=== PATIENT | female | born 1980 | race Caucasian/White ===

== ENCOUNTER 2016-05-10 19:24 | Inpatient (IN) | payer OTHER ==
[~2016-05-10] VITALS: Ht 170.2 cm; Wt 75.3 kg
[~2016-05-10 19:24] MED LIST: PRILOSEC20 M1 PO
[2016-05-10 20:10] VITALS: BP 168/103
--- NOTE | 2016-05-10 20:41 | NUR ---
PATIENT AMBULATED TO ER BED 03
--- NOTE | 2016-05-10 20:49 | NUR ---
Patient being evaluated by physician at bedside.
--- NOTE | 2016-05-10 20:52 | NUR ---
PATIENT PRESENTS TO ED WITH C/C OF ABDOMINAL PAIN RADIATING TO RIGHT SHOULDER AND BACK FOR 3 DAYS. DENIES N/V/D; SKIN IS PINK/WARM/DRY; AAOX4 WITH EVEN AND STEADY GAIT; LUNGS CLEAR BL; HR EVEN AND REGULAR; PT DENIES ANY FEVER, CP, SOB, OR COUGH AT THIS TIME; PATIENT STATES PAIN OF 8/10 AT THIS TIME; VSS; PATIENT POSITIONED FOR COMFORT; HOB ELEVATED; BEDRAILS UP X2; BED DOWN. ER MD MADE AWARE OF PT STATUS.
[2016-05-10] MEDS ORDERED: NACL 0.9% 1,000 ML IV SCH (20:53)
[2016-05-10] MEDS ORDERED: ONDANSETRON 4 MG/2 ML VIAL IVP ONE (20:55)
[2016-05-10] MEDS ORDERED: FAMOTIDINE 20 MG/2 ML VIAL IVP ONE (20:55)
--- NOTE | 2016-05-10 22:40 | NUR ---
PT ARRIVED ON UNIT IN STABLE CONDITION. NO SOB, NO SIGNS OF DISTRESS. VS STABLE ON ROOM AIR. PT IS AOX4, AMBULATORY WITH STEADY GAIT. PT STATES HER PAIN IS TOLERABLE AT THIS TIME. PT DENIES N/V/D. IV TO LT FA 2OG PATENT, ASYMPTOMATIC, INTACT, SALINE LOCKED. ORIENTED PT TO ROOM AND UNIT. SKIN INTACT. EDUCATED PT THAT PER MD ORDER SHE IS NOT TO EAT OR DRINK, PT VERBALIZED UNDERSTANDING. PLAN OF CARE DISCUSSED WITH PT, ALL QUESTIONS ANSWERED. SAFETY MEASURES IN PLACE. CALL LIGHT WITHIN REACH. WILL CONTINUE TO MONITOR.
--- NOTE | 2016-05-10 22:40 | NUR ---
Patient will be admitted to care of DR. DILL. Admited to MED-SURG. Will go to room 120A. Belongings list completed. Report to SAMIA WINN.
--- NOTE | 2016-05-10 23:06 | NUR ---
PT REQUESTED NICOTINE PATCH SINCE SHE CANNOT SMOKE DURING HOSPITAL STAY. PAGED MD PRICE TACK MAKER FOR MD DILL FOR ORDER. WAITING FOR CALL BACK.
--- NOTE | 2016-05-10 23:08 | NUR ---
SPOKE WITH MD PRICE. GAVE ORDER FOR NICOTINE PATCH, STATED IT IS OK TO START TONIGHT.
[2016-05-10 23:12] VITALS: BP 147/89
[2016-05-10] MEDS ORDERED: ceFAZolin 1,000 MG VIAL ONE (23:26)
[2016-05-10] MEDS: NACL 0.9% 1,000 ML IV SCH (23:40)
--- NOTE | 2016-05-10 23:40 | NUR ---
STARTED PT ON IVF AND IV ANTIBIOTIC PER MD ORDER, PT TOLERATING WELL.
[2016-05-10] MEDS ORDERED: INFLUENZA VIRUS VACCINE QUAD 0.5 ML SYR IMVAC PRN (23:45)
[2016-05-10] MEDS ORDERED: PNEUMOCOCCAL VACCINE 23 MCG/0.5 ML VIAL IMVAC PRN (23:45)
[2016-05-11] VITALS: BP 154/86
--- NOTE | 2016-05-11 00:23 | NUR ---
VS STABLE ON ROOM AIR. NO SOB, NO SIGNS OF DISTRESS. IV SITE ASYMPTOMATIC, INTACT, PATENT, IVF RUNNING. PT C/O PAIN, WILL MEDICATE PER MD ORDER. PLAN OF CARE DISCUSSED WITH PT. SAFETY MEASURES IN PLACE. CALL LIGHT WITHIN REACH. WILL CONTINUE TO MONITOR.
[2016-05-11] MEDS: MORPHINE SULFATE 2 MG/ML SYR IVP PRN ×2 (00:36→08:43)
--- NOTE | 2016-05-11 02:20 | NUR ---
PT ASLEEP IN BED. NO SOB, NO SIGNS OF DISTRESS. IV SITE ASYMPTOMATIC, INTACT, PATENT, IVF RUNNING. SAFETY MEASURES IN PLACE. CALL LIGHT WITHIN REACH. WILL CONTINUE TO MONITOR.
--- NOTE | 2016-05-11 04:12 | NUR ---
PT ASLEEP IN BED. NO SOB, NO SIGNS OF DISTRESS. IV SITE ASYMPTOMATIC, INTACT, PATENT, IVF RUNNING. SAFETY MEASURES IN PLACE CALL LIGHT WITHIN REACH. WILL CONTINUE TO MONITOR.
--- NOTE | 2016-05-11 07:02 | NUR ---
ENDORSED PT IN STABLE CONDITION TO SAMIA BOUCHER. ALL NEEDS HAVE BEEN MET AT THIS TIME.
--- NOTE | 2016-05-11 07:03 | NUR ---
RECEIVED REPORT FROM NIGHT NURSE TATUM RN. PATIENT APPEARED TO BE CALM, AWAKE AND RESTING WELL IN BED. AAOX4 WITH NO SOB OR SIGN OF DISTRESS NOTED. INITIAL ASSESSMENT DONE. SKIN INTACT. PATIENT STATED ABD PAIN IS TOLERABLE AT THIS TIME AND REQUEST PAIN MEDICATION NEEDED. PATIENT HAS IV 20G TO LEFT FOREARM INTACT AND FLUSHED WELL. PLAN OF CARE, PAIN MANAGEMENT AND MEDICATION REGIMENTS DISCUSSED, PATIENT VERBALIZED UNDERSTANDING. CALL LIGHT WITHIN REACH. WILL CONTINUE TO MONITOR.
[2016-05-11 08:00] VITALS: BP 130/79
[2016-05-11] MEDS: NICOTINE TRANSD SYS 21 MG/24 HR PATCH TD SCH (08:35)
--- NOTE | 2016-05-11 08:35 | NUR ---
NICOTINE PATCH APPLIED TO LEFT SHOULDER.
[2016-05-11] MEDS: NACL 0.9% 1,000 ML IV SCH ×3 (08:44→22:46)
--- NOTE | 2016-05-11 09:14 | NUR ---
PATIENT HAS BEEN SCREENED AND CATEGORIZED MODERATE NUTRITION RISK. PATIENT WILL BE SEEN WITHIN 3-5 DAYS OF ADMISSION. 05/13/16-05/15/[address]
--- NOTE | 2016-05-11 10:37 | NUR ---
SPOKE WITH DR SEN SURGEON, REGARDING SURGERY SCHEDULE NEW ORDER , LOW FAT DIET FOR NOW AND WILL COME TO SEE HER LATE AFTERNOON.
--- NOTE | 2016-05-11 10:46 | NUR ---
PER CHARGE NURSE ADARSH GRACIA, DR COLLADO WILL BE SEEING PATIENT LATER THIS EVENING. RECEIVED TELEPHONE DIET ORDER PER CHARGE NURSE SAMIA ALTAMIRANO. UPDATED PATIENT WITH NEW PLAN OF CARE, PATIENT VERBALIZED UNDERSTANDING.
--- NOTE | 2016-05-11 11:09 | NUR ---
HEATING PAD GIVEN AND APPLIED TO ABD, PATIENT TOLERATED WELL. NO SIGN DISTRESS NOTED. CALL LIGHT WITHIN REACH. WILL CONTINUE TO MONITOR.
--- NOTE | 2016-05-11 13:35 | NUR ---
FAXED REVIEW TO [facility] FAX# [phone] PH# GADIEL [phone]
--- NOTE | 2016-05-11 14:59 | NUR ---
PATIENT SLEEP WELL AND SOUNDLY IN BED. NO SIGN OF DISTRESS NOTED AT THIS TIME. ALL COMFORT AND SAFETY MEASURE IN PLACE. CALL LIGHT WITHIN REACH. WILL CONTINUE TO MONITOR.
[2016-05-11 16:00] VITALS: BP 133/98
--- NOTE | 2016-05-11 16:41 | NUR ---
REMOVED IV TO LEFT AC DUE TO INFILTRATION. NEW IV 22G INSERTED TO RIGHT HAND ONE ATTEMPT. PATIENT TOLERATED WELL. IVF RESUMED. PATIENT DENIED ANY PAIN OR DISCOMFORT. PATIENT SITING IN BED AND WATCHING TV. CALL LIGHT WITHIN REACH. WILL CONTINUE TO MONITOR.
--- NOTE | 2016-05-11 18:01 | NUR ---
PATIENT RESTING WELL IN BED. NO SIGN OF DISTRESS NOTED. PATIENT DENIED ANY PAIN OR DISCOMFORT. DENIED N/V. CALL LIGHT WITHIN REACH. WILL CONTINUE TO MONITOR.
--- NOTE | 2016-05-11 18:43 | NUR ---
INSTRUCTED PATIENT TO PEE IN CUP FOR URINE DRUG SCREEN, PATIENT VERBALIZED UNDERSTANDING.
--- NOTE | 2016-05-11 19:10 | NUR ---
RECEIVED PT FROM SANDER GRACIA AT BEDSIDE FOR CONTINUITY OF CARE. PT STABLE, FAMILY AT BEDSIDE. NO DISTRESS NOTED.
--- NOTE | 2016-05-11 19:18 | NUR ---
ENDORSED PATIENT CURRENT PLAN OF CARE TO NIGHT NURSE RIANNA GRACIA. PATIENT RESTING IN BED WITH NO SIGN OF DISTRESS NOTED
--- NOTE | 2016-05-11 19:32 | NUR ---
SHIFT ASSESSMENT DONE. PT VITAL SIGNS ARE STABLE, PT ON ROOM AIR WITH OXYGEN SATURATION 99%, HR 86, TEMPERATURE IS 98.2F, BP 132/88, RR 18 AND PT DENIES NAUSEA, PAIN, SOB, AND OR VOMITING AT THIS TIME. LUNG SOUNDS CLEAR AND BOWEL SOUNDS ARE ACTIVE. SKIN INTACT. IV ACCESS TO RT HAND #22G, PATENT AND INTACT. NO EDEMA NOTED. DISCUSSED PLAN OF CARE WITH PT, VERBALIZED UNDERSTANDING. SAFETY PRECAUTIONS IMPLEMENTED. CALL LIGHT WITHIN EASY REACH. WILL CONTINUE TO MONITOR PT. ALL NEEDS MET.
--- NOTE | 2016-05-11 20:07 | NUR ---
DR. STALLWORTH AT PT BEDSIDE. PER DR. STALLWORTH PT WILL HAVE SURGERY ON Monday05/13/16. PT REQUESTING MOTRIN FOR CRAMPS. PER DR. STALLWORTH OK TO GIVE PT IBUPROFEN 600MG PO Q4H PRN FOR CRAMPS.
[2016-05-11] MEDS: IBUPROFEN 600 MG TAB PO PRN (21:10)
--- NOTE | 2016-05-11 21:16 | NUR ---
SPOKE TO DR. PRICE REGARDING PT REQUESTING MEDICATION FOR SLEEP. RECEIVED NEW ORDER FROM DR PRICE FOR RESTORIL 7.5MG PO FOR HS NEEDED FOR INSOMNIA.
[2016-05-11] MEDS: TEMAZEPAM 15 MG CAP PO PRN (21:48)
--- NOTE | 2016-05-11 23:19 | NUR ---
PT SLEEPING, NO ACUTE DISTRESS NOTED.
[2016-05-12] VITALS: BP 130/75
--- NOTE | 2016-05-12 00:30 | NUR ---
PT VITAL SIGNS ARE STABLE, NO ACUTE DISTRESS NOTED. DENIES PAIN.
--- NOTE | 2016-05-12 02:10 | NUR ---
PT WATCHING TV, NO DISTRESS NOTED. REMAINS IN STABLE CONDITION.
--- NOTE | 2016-05-12 04:10 | NUR ---
PT NOTED ASLEEP, NO S/S OF ACUTE DISTRESS.
--- NOTE | 2016-05-12 06:29 | NUR ---
PT SLEEPING AT THIS TIME. NO DISTRESS.
--- NOTE | 2016-05-12 07:28 | NUR ---
ENDORSED PT TO JOSHUA RN FOR CONTINUITY OF CARE AT BEDSIDE, PT STABLE. NO DISTRESS NOTED.
--- NOTE | 2016-05-12 07:28 | NUR ---
RECEIVED REPORT FROM NIGHT NURSE, PT IS AAOX4, IV TO RIGHT HAND 22G INFUSING WELL. SKIN INTACT. SCD'S NOTED INITIAL ASSESSMENT COMPLETED, DISCUSSED PLAN OF CARE WITH PT, PT VERBALIZED UNDERSTANDING. ALL SAFETY/ FALL PRECAUTIONS MET, CALL LIGHT WITHIN REACH. WILL CONTINUE TO MONITOR.
[2016-05-12 08:00] VITALS: BP 126/76
[2016-05-12] MEDS: NACL 0.9% 1,000 ML IV SCH ×2 (08:31→21:25)
[2016-05-12] MEDS: IBUPROFEN 600 MG TAB PO PRN (08:31)
[2016-05-12] MEDS: NICOTINE TRANSD SYS 21 MG/24 HR PATCH TD SCH (08:31)
--- NOTE | 2016-05-12 08:36 | NUR ---
DUE MEDICATION GIVEN, NICOTINE PATCH PLACE ON RIGHT ARM. PT CURRENTLY IN BED ON LAPTOP, MOTRIN GIVEN FOR ABD PAIN . CALL LIGHT WITHIN REACH. WILL CONTINUE TO MONITOR.
--- NOTE | 2016-05-12 09:15 | NUR ---
PT WAS ASSISTED TO THE SHOWER. ALL NEEDS MET
--- NOTE | 2016-05-12 11:05 | NUR ---
CHECKED IN ON PT, PT CURRENTLY WATCHING TV, NO S/S OF DISTRESS NOTED. CALL LIGHT WITHIN REACH, WILL CONTINUE TO MONITOR.
--- NOTE | 2016-05-12 12:38 | NUR ---
CM NOTE CONCURRENT REVIEW SENT TO [facility] FAX# [phone] PH# GADIEL [phone]
--- NOTE | 2016-05-12 13:15 | NUR ---
PT CURRENTLY IN BED RESTING. CALL LIGHT WITHIN REACH. WILL CONTINUE TO MONITOR.
--- NOTE | 2016-05-12 15:20 | NUR ---
CHECKED IN ON PT, PT CURRENTLY RESTING. NO S/S OF RESPIRATORY DISTRESS. CALL LIGHT WITHIN REACH
--- NOTE | 2016-05-12 15:20 | NUR ---
ENDORSED PLAN OF CARE TO NIGHT NURSE, PT IN STABLE CONDITION Addendum: 05/12/16 at 1945 by Daisy Griffin RN JAHAIRA, PREVIOUS NOTE.
[2016-05-12 16:00] VITALS: BP 135/80
--- NOTE | 2016-05-12 16:45 | NUR ---
PT CURRENTLY ON LAPTOP, CALL LIGHT WITHIN REACH. WILL CONTINUE TO MONITOR.
--- NOTE | 2016-05-12 17:00 | NUR ---
UPDATED PT ON PLAN OF CARE, PT VERBALIZED UNDERSTANDING, CALL LIGHT WITHIN REACH WILL CONTINUE TO MONITOR.
--- NOTE | 2016-05-12 19:15 | NUR ---
ENDORSED PLAN OF CARE TO NIGHT NURSE, PT IN STABLE CONDITION .
--- NOTE | 2016-05-12 19:20 | NUR ---
PT SIGNED ALL DISCHARGE PAPERWORK, WOUND EDUCATION GIVEN, PRESCRIPTION AND EDUCATION GIVEN, FOLLOW UP APPOINTMENT INFORMATION GIVEN, PT VERBALIZED UNDERSTANDING. IV REMOVED, TIP INTACT. PT WAS WHEELED OUT TO FRONT LOBBY IN STABLE CONDITION. Addendum: 05/12/16 at 1942 by Daisy Griffin RN DELETE NOTE, WRONG PT
--- NOTE | 2016-05-12 19:25 | NUR ---
RECEIVED REPORT FROM SAMIA LEWIS. PT AAOX4. PT STABLE. FAMILY AT BEDSIDE. PT HAS IV TO RIGHT HAND 22G; ASYMPTOMATIC, PATENT AND INTACT. PT'S SKIN IS INTACT. ORIENTED PT TO ROOM AND SURROUNDINGS AND USE OF CALL LIGHT. PT VERBALIZES UNDERSTANDING. SAFETY MEASURES IN PLACE. WILL CONTINUE TO MONITOR PT.
[2016-05-12 20:00] VITALS: BP 137/86
[2016-05-12] MEDS ORDERED: TEMAZEPAM 15 MG CAP PO SCH (21:00)
[2016-05-12] MEDS: MORPHINE SULFATE 2 MG/ML SYR IVP PRN (21:25)
--- NOTE | 2016-05-12 21:27 | NUR ---
PT MEDICATED FOR ABDOMINAL PAIN 11/17. VS STABLE, WILL MONITOR PT.
--- NOTE | 2016-05-12 21:55 | NUR ---
RECEIVED TELEPHONE ORDERS FROM DR. STALLWORTH. WILL FOLLOW UP ON ORDERS.
--- NOTE | 2016-05-12 22:00 | NUR ---
PT INSTRUCTED THAT SHE IS NPO AFTER MIDNIGHT BY DR. FEDERICA LORENZO. PT VERBALIZES UNDERSTANDING.
[2016-05-13] VITALS: BP 128/81
--- NOTE | 2016-05-13 00:46 | NUR ---
PT SLEEPING AT THIS TIME, PT HAS SCDS ON. CALL LIGHT WITHIN REACH.
--- NOTE | 2016-05-13 01:40 | NUR ---
URINE COLLECTED AND SENT TO LAB PER DR. STALLWORTH ORDERS. CONSENT SIGNED FOR PROCEDURE FOR TOMORROW.
--- NOTE | 2016-05-13 03:50 | NUR ---
PT REQUESTING TO HAVE IV DISCONNECTED TO AMBULATE TO THE RESTROOM. PT BACK IN BED COMFORTABLE NOW. CALL LIGHT WITHIN REACH.
--- NOTE | 2016-05-13 06:10 | NUR ---
PT SLEEPING AT THIS TIME, NO SIGNS OF DISTRESS NOTED, WILL CONTINUE TO MONITOR PT.
--- NOTE | 2016-05-13 07:37 | NUR ---
ENDORSED PT IN STABLE CONDITION TO SAMIA RIVAS FOR CONTINUITY OF CARE.
--- NOTE | 2016-05-13 07:38 | NUR ---
RECEIVED REPORT FROM CONSTRUCTION ADMINISTRATIVE ASSISTANT NURSE. PT IS AAOX4, DENIES PAIN/DISCOMFORT AT THIS TIME. IV IS PATENT AND FLOWING. SKIN IS WARM AND INTACT. PT IS ON ROOM AIR, VITALS STABLE. CALL LIGHT WITHIN REACH. WILL CONTINUE TO MONITOR
[2016-05-13 08:00] VITALS: BP 137/84
[2016-05-13] MEDS: NICOTINE TRANSD SYS 21 MG/24 HR PATCH TD SCH (08:38)
--- NOTE | 2016-05-13 08:39 | NUR ---
NICOTINE PATCH APPLIED TO LEFT UPPER ARM. PT DEE DEE WELL.
[2016-05-13] MEDS: MORPHINE SULFATE 2 MG/ML SYR IVP PRN ×2 (09:20→18:51)
--- NOTE | 2016-05-13 09:28 | NUR ---
PT C/O PAIN. MEDICATED PRESCRIBED.
[2016-05-13] MEDS: NACL 0.9% 1,000 ML IV SCH ×2 (10:10→20:10)
--- NOTE | 2016-05-13 11:40 | NUR ---
PT RESTING, ALL NEEDS MET AT THIS TIME.
[2016-05-13] MEDS ORDERED: BUPIVACAINE-MPF 0.25% 30 ML VIAL INJ ONE (13:05)
--- NOTE | 2016-05-13 13:16 | NUR ---
PER DR. STALLWORTH, SURGERY IS POSTPONED FOR TOMORROW MORNING. INFORMED PT.
--- NOTE | 2016-05-13 13:24 | NUR ---
PAGED DR. DILL, AWAITING CALLBACK.
--- NOTE | 2016-05-13 13:45 | NUR ---
05/13/16 RD INITIAL ASSESSMENT COMPLETED PLEASE REFER TO NUTRITION ASSESSMENT UNDER CARE ACTIVITY FOR ESTIMATED NUTRITIONAL NEEDS. RD RECOMMENDATIONS: 1. CONTINUE NPO MEDICALLY APPROPRIATE PER MD. 2. IF/WHEN PT IS MEDICALLY STABLE TO BEGIN NUTRITION, CONSIDER ADVANCE TOLERATED DIET TO CARDIAC DIET D/T PT WITH PMH OF HTN. 3. RD WILL F/U 3-5 DAYS; MODERATE RISK. CHRISTY AVILA RD
--- NOTE | 2016-05-13 15:24 | NUR ---
VITALS REMAIN STABLE. NO DISTRESS NOTED.
[2016-05-13 16:00] VITALS: BP 130/80
--- NOTE | 2016-05-13 19:09 | NUR ---
ENDORSED TO SUPERVISOR METAL FURNITURE ASSEMBLY NURSE IN STABLE CONDITION.
--- NOTE | 2016-05-13 19:20 | NUR ---
RECEIVED REPORT FROM SAMIA RIVAS AT BEDSIDE. PT AAOX4. PT STABLE. FAMILY AT BEDSIDE. PT HAS IV TO LEFT HAND 20G; ASYMPTOMATIC, PATENT AND INTACT. PT'S SKIN IS INTACT. PT HAS SCDS ON. ORIENTED PT TO ROOM AND SURROUNDINGS AND USE OF CALL LIGHT. PT VERBALIZES UNDERSTANDING. SAFETY MEASURES IN PLACE. WILL CONTINUE TO MONITOR PT.
[2016-05-13 20:00] VITALS: BP 140/89
--- NOTE | 2016-05-13 21:35 | NUR ---
PT SLEEPING AT THIS TIME, NO SIGNS OF DISTRESS/DISCOMFORT NOTED AT THIS TIME, CALL LIGHT WITHIN REACH.
[2016-05-14] VITALS: BP 147/81
--- NOTE | 2016-05-14 00:42 | NUR ---
PT AMBULATED TO THE RESTROOM WITH STEADY GAIT. PT BACK IN BED COMFORTABLY NOW. CALL LIGHT WITHIN REACH.
--- NOTE | 2016-05-14 01:27 | NUR ---
PT STATES THAT SHE HAS TROUBLE FALLING ASLEEP BECAUSE SHE HAS NIGHTMARES. PT REQUESTED TO HAVE CURTAINS CLOSED AND DOOR WIDE OPEN. WILL CONTINUE TO MONITOR PT.
--- NOTE | 2016-05-14 03:23 | NUR ---
PT SLEEPING AT THIS TIME. NO SIGNS OF DISTRESS OR DISCOMFORT NOTED. CALL LIGHT WITHIN REACH.
--- NOTE | 2016-05-14 05:25 | NUR ---
PT WATCHING VIDEOS ON HER TABLET, CALL LIGHT WITHIN REACH. Addendum: 05/14/16 at 0739 by Elvi Friedman RN WRONG ENTRY. PT WATCHING TV AT THIS TIME.
[2016-05-14] MEDS: NACL 0.9% 1,000 ML IV SCH (06:10)
--- NOTE | 2016-05-14 07:38 | NUR ---
ENDORSED PT IN STABLE CONDITION TO RN FESTUS FOR CONTINUITY OF CARE.
--- NOTE | 2016-05-14 07:40 | NUR ---
RECEIVED REPORT AT PT BEDSIDE. PT RESTING IN BED. DENIES PAIN. NO S/S OF RESPIRATORY DISTRESS. AAOX4. AMBULATORY. SLIGHTLY AGITATED, AWAITING SURGERY. PT HAS IV TO LH, PATENT AND INTACT. CALL LIGHT WITHIN REACH.
[2016-05-14 08:00] VITALS: BP 112/75
[2016-05-14] MEDS: NICOTINE TRANSD SYS 21 MG/24 HR PATCH TD SCH (08:51)
--- NOTE | 2016-05-14 09:21 | NUR ---
PATIENT RESTING IN BED. NO S/S OF ACUTE DISTRESS. WILL CONTINUE TO MONITOR.
[2016-05-14] MEDS ORDERED: BUPIVACAINE-MPF 0.25% 30 ML VIAL INJ ONE (09:36)
--- NOTE | 2016-05-14 09:52 | NUR ---
PATIENT TAKEN OFF FLOOR FOR SURGICAL PROCEDURE.
[2016-05-14] MEDS ORDERED: GLYCOPYRROLATE 0.2 MG/ML VIAL IV ONE (10:25)
[2016-05-14] MEDS ORDERED: SUCCINYLCHOLINE CHLORIDE 200 MG/10 ML VIAL IV ONE (10:25)
[2016-05-14] MEDS ORDERED: DEXAMETHASONE 4 MG/ML VIAL IVP ONE (10:25)
[2016-05-14] MEDS ORDERED: DESFLURANE 240 ML BTL INH ONE (10:25)
[2016-05-14] MEDS ORDERED: ONDANSETRON 4 MG/2 ML VIAL IVP ONE (10:25)
[2016-05-14] MEDS ORDERED: NEOSTIGMINE 1:1000 10 MG/10 ML VIAL IM ONE (10:25)
[2016-05-14] MEDS ORDERED: KETOROLAC 60 MG/2 ML VIAL IM ONE (10:25)
[2016-05-14] MEDS ORDERED: PROPOFOL 200 MG/20 ML VIAL IV ONE (10:25)
[2016-05-14] MEDS ORDERED: ROCURONIUM 50 MG/5 ML VIAL IV ONE (10:25)
[2016-05-14] MEDS ORDERED: ceFAZolin 1,000 MG VIAL ONE (10:26)
[2016-05-14] MEDS ORDERED: MEPERIDINE 50 MG/ML SYR ONE (10:37)
[2016-05-14] MEDS ORDERED: MIDAZOLAM 2 MG/2 ML VIAL ONE (10:37)
[2016-05-14] MEDS ORDERED: fentaNYL 0.05 MG/ML VIAL ONE (10:37)
[2016-05-14] MEDS ORDERED: MIDAZOLAM 2 MG/2 ML VIAL IVP ONE (12:00)
[2016-05-14] MEDS ORDERED: MEPERIDINE 25 MG/ML SYR IVP PRN ×2 (12:00)
[2016-05-14] MEDS ORDERED: METOCLOPRAMIDE 10 MG/2 ML INJ VIAL IVP PRN (12:00)
[2016-05-14] MEDS ORDERED: MEPERIDINE 25 MG/ML SYR ONE (12:38)
[2016-05-14] MEDS ORDERED: KETOROLAC 30 MG/ML VIAL IVP PRN (13:20)
--- NOTE | 2016-05-14 13:45 | NUR ---
PATIENT RETURNED FROM [facility] PROCEDURE. PATIENT BROUGHT BACK TO ROOM IN BED WITH 4X INCISIONS CLOSED WITH GLUE AND STERI STRIPS. DRESSINGS DRY AND INTACT. PT IS AAOX4. PT MEDICATED FOR PAIN. C/O SLIGHT NAUSEA WILL MEDICATE ORDERED. CALL LIGHT WITHIN REACH. WILL CONTINUE TO MONITOR.
[2016-05-14] MEDS: ONDANSETRON 4 MG/2 ML VIAL IVP PRN (13:57)
--- NOTE | 2016-05-14 14:30 | NUR ---
PATIENT SEEN BY DR. DILL. NEW ORDERS RECEIVED. PT RESTING IN BED. NO S/S OF DISTRESS NOTED.
[2016-05-14] MEDS: HYDROmorphone 1 MG/ML AMP IVP PRN ×2 (15:09→18:02)
[2016-05-14 16:00] VITALS: BP 122/77
--- NOTE | 2016-05-14 16:40 | NUR ---
ASSISTED PT IN AMBULATING AROUND HALLS. TOLERATED FIRST ROUND WELL. PT STARTED TO FEEL DIZZY, ASSISTED TO BED. NO S/S OF DISTRESS AT THIS TIME.
[2016-05-14] MEDS: PIPER/TAZO 3.375GM/D5W PREMIX 50 ML IV SCH ×2 (17:15→23:27)
--- NOTE | 2016-05-14 19:25 | NUR ---
ENDORSED PLAN OF CARE TO RN CANDICE AT PT BEDSIDE. PT C/O SLIGHT CRAMPING, IS AMBULATING AT THIS TIME. FAMILY AT BEDSIDE. NO S/S OF DISTRESS.
--- NOTE | 2016-05-14 19:26 | NUR ---
RECEIVED REPORT FROM AM NURSE. PT IS AAOX4, FAMILY MEMBERS AT BEDSIDE. HAS NO COMPLAIN OF PAIN. ON ROOM AIR, NO S/S OF RESPIRATORY DISTRESS/DISCOMFORT NOTED. PT STATED TO AMBULATE IN THE HALLWAY. WOUND DRESSING IS CLEAN AND INTACT, NO SIGNS OF BLEEDING NOTED. PLAN OF CARE DISCUSSED, VERBALIZED UNDERSTANDING. SAFETY MEASURES CHECKED, CALL LIGHT WITHIN REACH. WILL CONTINUE TO MONITOR.
[2016-05-14] MEDS: metroNIDAZOLE 500 MG/NS PREMIX 100 ML IV SCH (20:32)
--- NOTE | 2016-05-14 20:32 | NUR ---
DUE MEDS GIVEN. FAMILY MEMBERS PRESENT AT BEDSIDE.
[2016-05-14] MEDS: MORPHINE SULFATE 2 MG/ML SYR IVP PRN (20:54)
--- NOTE | 2016-05-14 20:54 | NUR ---
PT COMPLAINED OF PAIN. ADMINISTERED PAIN MEDS PER MD ORDERED. EDUCATED TO SUPPORT WITH PILLOW WHILE COUGHING OR LAUGHING. ANSWERED ALL QUESTIONS, VERBALIZED UNDERSTANDING.
[2016-05-14] MEDS: TEMAZEPAM 15 MG CAP PO PRN (21:50)
--- NOTE | 2016-05-14 21:50 | NUR ---
PT STATED OF HARD TO SLEEP. PRN MED FOR INSOMIA WAS GIVEN.
[2016-05-15] VITALS: BP 116/61
--- NOTE | 2016-05-15 | NUR ---
PT IS STABLE. SLEEPING BUT EASILY TO AWAKE BY HER NAME. VS CHECKED AND STABLE.
[2016-05-15 04:00] VITALS: BP 118/61
[2016-05-15] MEDS: HYDROmorphone 1 MG/ML AMP IVP PRN (04:24)
--- NOTE | 2016-05-15 04:24 | NUR ---
PT COMPLAINED OF PAIN, MEDICATED PAIN MED PER MD ORDERED.
[2016-05-15] MEDS: metroNIDAZOLE 500 MG/NS PREMIX 100 ML IV SCH ×2 (05:59→13:30)
[2016-05-15] MEDS: PIPER/TAZO 3.375GM/D5W PREMIX 50 ML IV SCH ×2 (06:30→12:55)
--- NOTE | 2016-05-15 07:19 | NUR ---
ENDORSED REPORT TO AM NURSE. PT IS IN STABLE CONDITION.
--- NOTE | 2016-05-15 07:30 | NUR ---
RECEIVED REPORT FROM THE AGENCY RECRUITER NURSE CANDICE AT BEDSIDE. PATIENT IS AWAKE, ALERT, ORIENTEDX4. IV ON THE RIGHT HAND, INTACT, AND PATENT. INITIAL ASSESSMENT DONE. DRESSING IN PLACED ON THE ABDOMEN, DRY AND INTACT. NO BLEEDING. ON ROOM AIR NO S/S OF SOB OR DISTRESS. VITAL TAKEN AND WITHIN THE NORMAL LIMIT. COMPLAINED OF HEAD PAIN AND PAIN AROUND THE ABDOMEN, MEDICATION WILL BE PROVIDED WHEN DUE. SAFETY MEASURE CHECKED AND WILL CONTINUE TO MONITOR. FAMILY AT BEDSIDE. CALL LIGHT WITHIN REACH.
[2016-05-15 07:59] VITALS: BP 127/82
[2016-05-15] MEDS: NICOTINE TRANSD SYS 21 MG/24 HR PATCH TD SCH (08:24)
[2016-05-15] MEDS: MORPHINE SULFATE 2 MG/ML SYR IVP PRN (08:25)
[2016-05-15] MEDS: ONDANSETRON 4 MG/2 ML VIAL IVP PRN (08:41)
--- NOTE | 2016-05-15 08:56 | NUR ---
DUE MED GIVE. MORPHINE GIVEN FOR PT COMPLAINED OF 7/10 PAIN AND ZOFRAN GIVEN FOR COMPLAINED OF NAUSEA. WILL CONTINUE TO MONITOR. CALL LIGHT WITHIN REACH.
[2016-05-15] MEDS ORDERED: ENOXAPARIN 40 MG/0.4 ML SYR SUBQ SCH (09:00)
--- NOTE | 2016-05-15 10:20 | NUR ---
RECEIVED CALL FROM DR. STALLWORTH, PATIENT IS OK TO D/C TO HOME.
[2016-05-15 10:41] VITALS: BP 127/82
--- NOTE | 2016-05-15 10:52 | NUR ---
PATIENT IS RESTING IN BED, STATE PAIN MEDICATION HELP WITH PAIN. WILL CONTINUE TO MONITOR.
--- NOTE | 2016-05-15 12:00 | NUR ---
ZOSYN STARTED INFUSING. PATIENT TOLERATING IT WELL. NO S/S OF DISTRESS. WILL CONTINUE TO MONITOR.
[2016-05-15] MEDS: IBUPROFEN 600 MG TAB PO PRN (13:06)
--- NOTE | 2016-05-15 14:41 | NUR ---
PATIENT IS SLEEPING. NO S/S OF DISTRESS. WILL CONTINUE TO MONITOR. CALL LIGHT WITHIN REACH.
[2016-05-15 15:54] VITALS: BP 133/95
[2016-05-15 16:00] VITALS: BP 133/95
--- NOTE | 2016-05-15 16:00 | NUR ---
EDUCATION GIVEN ABOUT DISCHARGED INSTRUCTION, NEW PRESCRIPTION, AND FOLLOW UP APPOINTMENT WITH PRIMARY AND SURGEON. PATIENT SIGNED ALL DISCHARGED PAPER AND COPIES GIVEN TO PATIENT. PATIENT VERBALIZED UNDERSTANDING. WILL BE DISCHARGED TO HOME WITH FAMILY IN STABLE CONDITION.
[2016-05-15] MEDS ORDERED: NORCO 325 MG-7.1 TAB PO (16:04)
[2016-05-15] MEDS ORDERED: COLACE100 M1 PO (16:06)
--- NOTE | 2016-05-15 16:30 | NUR ---
ASSISTED PATIENT TO THE LOBBY ON A WHEELCHAIR WITH BOYFRIEND. PATIENT IS DISCHARGED TO HOME IN STABLE CONDITION.
== END 2016-05-15 16:30 | disposition home or self-care (01) | DRG 263 ==
LOC: MED 19:24 → MTU 22:19
PROVIDERS: ADMIT Hospitalist; ATTEND Hospitalist
PROC: 0FT44ZZ Resection of Gallbladder, Percutaneous Endoscopic Approach (ICD-10-PCS; principal; 2016-05-14 10:30)
DX: K80.10 Calculus of gallbladder with chronic cholecystitis without obstruction (principal); I10 Essential (primary) hypertension; F17.210 Nicotine dependence, cigarettes, uncomplicated; J45.909 Unspecified asthma, uncomplicated; Z87.898 Personal history of other specified conditions

== ENCOUNTER 2016-05-21 03:44 | Emergency (ER) | payer OTHER ==
[~2016-05-21] VITALS: Ht 170.2 cm; Wt 71.7 kg
[~2016-05-21 03:44] MED LIST changes: +COLACE100 M1 PO; +NORCO 325 MG-7.1 TAB PO
--- NOTE | 2016-05-21 03:49 | NUR ---
Patient ambulated to bed 04.
[2016-05-21 03:53] VITALS: BP 134/86
--- NOTE | 2016-05-21 03:55 | NUR ---
Patient being evaluated by at bedside.
[2016-05-21 04:04] VITALS: BP 134/86
--- NOTE | 2016-05-21 04:08 | NUR ---
35Y/F PATIENT BIB FRIEND TO ED WITH C/O LEFT SIDE NUMBNESS X 1 DAY. PT STATES S/SX STARTED 1999 YESTERDAY. PT STATES SHE HAD GALLBLADDER SURGERY LAST WEEK.DENIES N/V/D; SKIN IS PINK/WARM/DRY; AAOX4 WITH EVEN AND STEADY GAIT; LUNGS CLEAR BL; HR EVEN AND REGULAR; PT DENIES ANY FEVER, CP, SOB, OR COUGH AT THIS TIME; PATIENT STATES PAIN OF 7/10 AT THIS TIME; VSS; PATIENT POSITIONED FOR COMFORT; HOB ELEVATED; BEDRAILS UP X2; BED DOWN. ER MD MADE AWARE OF PT STATUS.
--- NOTE | 2016-05-21 04:15 | NUR ---
Patient discharged with v/s stable. Written and verbal after care instructions given and explained. Patient alert, oriented and verbalized understanding of instructions. Ambulatory with steady gait. All questions addressed prior to discharge. ID band removed. Patient advised to follow up with PMD. Rx of ROBAXIN 500 MG given. Patient educated on indication of medication including possible reaction and side effects. Opportunity to ask questions provided and answered.
== END 2016-05-21 04:15 | disposition home or self-care (01) ==
LOC: MED 03:44
DX: M25.512 Pain in left shoulder (principal); I10 Essential (primary) hypertension; Z90.49 Acquired absence of other specified parts of digestive tract

== ENCOUNTER 2017-10-15 20:46 | Emergency (ER) | payer OTHER ==
[~2017-10-15] VITALS: Ht 170.2 cm; Wt 75.4 kg
[~2017-10-15 20:46] MED LIST changes: +ACET-2863 PO; -COLACE100 M1 PO; +DOCU-299 PO; -NORCO 325 MG-7.1 TAB PO; +OMEP20EC4 PO; -PRILOSEC20 M1 PO
[2017-10-15 20:51] VITALS: BP 148/90
[2017-10-15 22:15] VITALS: BP 148/90
== END 2017-10-15 22:15 | disposition home or self-care (01) ==
LOC: MED 20:46
DX: N39.0 Urinary tract infection, site not specified (principal); R53.1 Weakness; I10 Essential (primary) hypertension; F17.210 Nicotine dependence, cigarettes, uncomplicated; Z90.49 Acquired absence of other specified parts of digestive tract
CPT/HCPCS: 81002; 81025; 99283

== ENCOUNTER 2020-04-29 12:02 | Emergency (ER) | payer SELFPAY ==
[~2020-04-29] VITALS: Ht 170.2 cm; Wt 81.6 kg
[~2020-04-29 12:02] MED LIST changes: -ACET-2863 PO; +HYDR-5080 PO
[2020-04-29 12:14] VITALS: BP 167/89
--- NOTE | 2020-04-29 13:10 | NUR ---
Recevied care of 39 y/o female c/o prolonged menstruation. Pt states the usual length of her period is 1 week but has been having it since 04/15/20. Reports no Med hx aside from migraines, NKA.
--- NOTE | 2020-04-29 13:40 | NUR ---
Ultrasound at bedside.
[2020-04-29 13:54] LABS: BASOPHILS # (AUTO) 0.1 K/uL (0.00-0.22); EOSINOPHILS # (AUTO) 0.1 K/uL (0-0.4); EOSINOPHILS % (AUTO) 2.3 % (0.0-4.0); HEMOGLOBIN 7.9 g/dL (12.0-16.0); LYMPHOCYTES # (AUTO) 1.8 K/uL (2.5-16.5); MONOCYTES # (AUTO) 0.8 K/uL (0.8-1.0); RED CELL DISTRIBUTION WIDTH 20.2 % (11.6-13.7)
[2020-04-29 14:07] LABS: BASOPHILS % (AUTO) 1.1 % (0.0-2.0); HEMATOCRIT 27.2 % (36-48); MEAN CORPUSCULAR HEMOGLOBIN 19 pg (27-31); MEAN CORPUSCULAR HGB CONC 29 g/dL (33-37); MEAN CORPUSCULAR VOLUME 66.1 fL (80-94); MONOCYTES % (AUTO) 11.5 % (1.7-9.3); NEUTROPHILS # (AUTO) 3.7 K/uL (1.8-7.7); NEUTROPHILS % (AUTO) 57.1 % (42.2-75.2); PLATELET COUNT (AUTO) 331 K/uL (140-450); RED BLOOD CELL COUNT(AUTO) 4.12 MIL/uL (4.20-5.40); WHITE BLOOD COUNT (AUTO) 6.6 K/uL (4.8-10.8)
[2020-04-29 15:12] VITALS: BP 154/81
--- NOTE | 2020-04-29 15:14 | NUR ---
cleared for d/c by Dr Cole; d/c with prescription & instructions on Abnormal Uterine bleeding; pt fully understands all materials given re c/c; has no further questions; aox4; VSS; ambulatory with steady gait; no signs of acute distress
== END 2020-04-29 15:14 | disposition home or self-care (01) ==
LOC: MED 12:02
DX: D25.9 Leiomyoma of uterus, unspecified (principal); D64.9 Anemia, unspecified; F17.290 Nicotine dependence, other tobacco product, uncomplicated; I10 Essential (primary) hypertension; Z90.49 Acquired absence of other specified parts of digestive tract; Z98.890 Other specified postprocedural states; Z79.899 Other long term (current) drug therapy
CPT/HCPCS: 36415; 76830; 84443; 85025; 99284

== ENCOUNTER 2020-05-11 03:45 | Emergency (ER) | payer SELFPAY ==
[~2020-05-11] VITALS: Ht 170.2 cm; Wt 77.1 kg
[2020-05-11 03:49] VITALS: BP 160/90
--- NOTE | 2020-05-11 03:49 | NUR ---
TO BED AMBULATORY
--- NOTE | 2020-05-11 04:15 | NUR ---
Dr. Huff with pt for MSE.
--- NOTE | 2020-05-11 04:20 | NUR ---
see complete assessment.
--- NOTE | 2020-05-11 04:25 | NUR ---
pt connected to cardiac monitoring and pulse oximetry.
[2020-05-11] MEDS: NACL 0.9% 1,000 ML IV ONE (04:36)
[2020-05-11 04:37] LABS: BASOPHILS # (AUTO) 0.1 K/uL (0.00-0.22); BASOPHILS % (AUTO) 1.2 % (0.0-2.0); EOSINOPHILS # (AUTO) 0.1 K/uL (0-0.4); HEMATOCRIT 25.4 % (36-48); HEMOGLOBIN 7.3 g/dL (12.0-16.0); LYMPHOCYTES # (AUTO) 1.8 K/uL (2.5-16.5); LYMPHOCYTES % (AUTO) 27.4 % (20.5-51.1); MEAN CORPUSCULAR HEMOGLOBIN 19 pg (27-31); MEAN CORPUSCULAR HGB CONC 29 g/dL (33-37); MEAN CORPUSCULAR VOLUME 66.3 fL (80-94); MONOCYTES # (AUTO) 0.8 K/uL (0.8-1.0); MONOCYTES % (AUTO) 11.4 % (1.7-9.3); NEUTROPHILS # (AUTO) 3.8 K/uL (1.8-7.7); PLATELET COUNT (AUTO) 405 K/uL (140-450); PROTHROMBIN TIME 9.9 secs (10.8-13.4); RED BLOOD CELL COUNT(AUTO) 3.83 MIL/uL (4.20-5.40); RED CELL DISTRIBUTION WIDTH 20.1 % (11.6-13.7); WHITE BLOOD COUNT (AUTO) 6.6 K/uL (4.8-10.8)
[2020-05-11 05:04] LABS: ALBUMIN 3.9 g/dL (3.4-5.0); CARBON DIOXIDE 26.5 mmol/L (21-32); CREATININE 0.8 mg/dL (0.6-1.3); POTASSIUM 3.5 mmol/L (3.5-5.1); TOTAL BILIRUBIN 0.2 mg/dL (0.0-1.0)
--- NOTE | 2020-05-11 05:15 | NUR ---
Dr. Huff with pt.
--- NOTE | 2020-05-11 05:20 | NUR ---
pt notified of upcoming blood transfusion. pt understood teaching and risks. signed consent form.
--- NOTE | 2020-05-11 07:15 | NUR ---
REPORT RECEIVED FROM AMANDA GRACIA, TRANSFER OF CARE AT THIS TIME
--- NOTE | 2020-05-11 07:20 | NUR ---
PATIENT AO4, BREATHING EVEN AND UNLABORED
--- NOTE | 2020-05-11 08:05 | NUR ---
Consent signed per patient and ERMD agreeing to administration of blood. Blood has been type and crossmatched. Blood sent from blood bank. Information on unit of blood checked against patient wristband at bedside by two nurses. All information matches. Patient or responsible libertarian informed of potential complications associated with blood transfusion. Informed of possible transfusion reaction symptoms. Aware of need to notify nurse at once of itching, shortness of breath, flushing, feeling of impending doom, or other symptoms not previously present. Vital signs taken within 5 minutes prior to initiation of transfusion. RN will remain with patient for first 15 minutes of transfusion at which time vital signs will be re-assessed.
--- NOTE | 2020-05-11 08:20 | NUR ---
BLOOD TRANSFUSION WITHOUT REACTION, CHANGED RATE TO 150ML/HR
--- NOTE | 2020-05-11 10:30 | NUR ---
Alexander hermosillo in ED - 05/11/20 at 1050 by [employer] COMPLETED 1 UNIT PRBCS. SOOR.
--- NOTE | 2020-05-11 10:30 | NUR ---
COMPLETED 1 UNIT PRBCS. SOOR.
--- NOTE | 2020-05-11 10:44 | NUR ---
Patient discharged with v/s stable. Written and verbal after care instructions about anemia and uterine fibroid given and explained. Patient alert, oriented and verbalized understanding of instructions. Ambulatory with steady gait. All questions addressed prior to discharge. ID band removed. Patient advised to follow up with PMD. Rx of PROVERA given. Patient educated on indication of medication including possible reaction and side effects. Opportunity to ask questions provided and answered.
[2020-05-11 10:51] VITALS: BP 130/61
== END 2020-05-11 10:44 | disposition home or self-care (01) ==
LOC: MED 03:45
DX: D25.9 Leiomyoma of uterus, unspecified (principal); D64.9 Anemia, unspecified; N93.9 Abnormal uterine and vaginal bleeding, unspecified; I10 Essential (primary) hypertension; F17.210 Nicotine dependence, cigarettes, uncomplicated
CPT/HCPCS: 36415; 36430; 80053; 85025; 85610; 85730; 86886; 86900; 86901; 86920; 96360; 99285; P9016; J7030

== ENCOUNTER 2020-05-12 16:11 | Inpatient (IN) | payer MEDICAID, SELFPAY ==
[~2020-05-12] VITALS: Ht 170.2 cm; Wt 82.7 kg
[2020-05-12 16:22] VITALS: BP 153/88
--- NOTE | 2020-05-12 16:30 | NUR ---
Taken to bed 2
--- NOTE | 2020-05-12 16:33 | NUR ---
39/F BIB SELF C/O VAGINAL BLEEDING , LOWER ABDOMINAL PAIN X 2 WEEKS. SEEN HERE 2 DAYS AGO SAME S/S. PMH: ANEMIA, UTERINE FIBROIDS , GALL BLADDER REMOVAL, C SECTION.
--- NOTE | 2020-05-12 16:35 | NUR ---
RANDOLPH FERGUSON AT BEDSIDE EVALUATING PT
[2020-05-12 17:00] LABS: BASOPHILS # (AUTO) 0.1 K/uL (0.00-0.22); BASOPHILS % (AUTO) 0.9 % (0.0-2.0); EOSINOPHILS # (AUTO) 0.1 K/uL (0-0.4); EOSINOPHILS % (AUTO) 1.6 % (0.0-4.0); HEMATOCRIT 24.6 % (36-48); HEMOGLOBIN 7.4 g/dL (12.0-16.0); LYMPHOCYTES # (AUTO) 1.8 K/uL (2.5-16.5); LYMPHOCYTES % (AUTO) 23.4 % (20.5-51.1); MEAN CORPUSCULAR HEMOGLOBIN 21 pg (27-31); MEAN CORPUSCULAR HGB CONC 30 g/dL (33-37); MEAN CORPUSCULAR VOLUME 68.2 fL (80-94); MONOCYTES # (AUTO) 0.8 K/uL (0.8-1.0); MONOCYTES % (AUTO) 10.9 % (1.7-9.3); NEUTROPHILS # (AUTO) 4.8 K/uL (1.8-7.7); NEUTROPHILS % (AUTO) 63.2 % (42.2-75.2); PLATELET COUNT (AUTO) 307 K/uL (140-450); RED CELL DISTRIBUTION WIDTH 22.1 % (11.6-13.7); WHITE BLOOD COUNT (AUTO) 7.6 K/uL (4.8-10.8)
[2020-05-12 17:23] LABS: ALBUMIN 3.5 g/dL (3.4-5.0); ANION GAP 8.2 (8-16); CARBON DIOXIDE 26.5 mmol/L (21-32); CREATININE 0.9 mg/dL (0.6-1.3); POTASSIUM 3.7 mmol/L (3.5-5.1); TOTAL BILIRUBIN 0.3 mg/dL (0.0-1.0)
--- NOTE | 2020-05-12 17:33 | NUR ---
PT AMBULATED TO RESTROOM FOR URINE SAMPLE
[2020-05-12] MEDS ORDERED: IBUPROFEN 600 MG TAB PO ONE (17:35)
[2020-05-12] MEDS ORDERED: traMADol 50 MG TAB PO ONE (17:35)
--- NOTE | 2020-05-12 17:35 | NUR ---
URINE SAMPLE COLLECTED AND LEFT WITH PATTI JOSE IN ER.
--- NOTE | 2020-05-12 17:45 | NUR ---
PT RESTING IN BED IN POSITION OF COMFORT. WOOD VENEER TAPER IN PLACE. EQUAL CHEST RISE AND FALL. BED LOCKED IN LOWEST POSITION, SIDE RAILS X1, CALL LIGHT IN REACH. ALL PT NEEDS MET AT THIS TIME.
--- NOTE | 2020-05-12 19:36 | NUR ---
RECEIVED REPORT FROM SAMIA JEREZ FOR CONTINUATION OF CARE AT THIS TIME. PT IS IN SEMI-FOWLERS POSITION AND ASLEEP. VISIBLE RISE AND FALL OF CHEST NOTED. BED IS LOCKED AND IN LOWEST POSITION. SIDE RAILSX1. PT IS CONNECTED TO THE STRUCTURAL LAYOUT WORKER. NO ACUTE DISTRESS NOTED. CALL LIGHT WITHIN REACH
--- NOTE | 2020-05-12 19:36 | NUR ---
REPORT AND CONTINUITY OF CARE GIVEN TO SAMIA ABRAHAM.
[2020-05-12] MEDS ORDERED: HYDROcodone/APAP 5/325 MG 1 TAB TAB PO PRN (19:55)
[2020-05-12] MEDS ORDERED: ZOLPIDEM 5 MG TAB PO PRN (19:55)
[2020-05-12] MEDS ORDERED: LORazepam 2 MG/ML VIAL IM/IVP PRN (19:55)
[2020-05-12] MEDS ORDERED: ACETAMINOPHEN 325 MG TAB PO PRN (19:55)
[2020-05-12] MEDS ORDERED: DOCUSATE SODIUM 100 MG GELCAP PO PRN (19:55)
[2020-05-12] MEDS ORDERED: ONDANSETRON 4 MG/2 ML VIAL IVP PRN (19:55)
--- NOTE | 2020-05-12 20:00 | NUR ---
20 G IV INITIATED, AND CONNECTED TO MAINTENANCE FLUIDS---NS @100ML/HR PER ADMIT MD ORDERS.
--- NOTE | 2020-05-12 20:05 | NUR ---
covid swab collected and walked over to lab
--- NOTE | 2020-05-12 20:08 | NUR ---
CALLED LAB TO NOTIFY THEM OF THE NEED FOR A UA ON THE PTS URINE SPECIMEN
--- NOTE | 2020-05-12 20:10 | NUR ---
SPOKE WITH MICHAEL FROM [facility] TO VERIFY MEDICATIONS FOR THE PT
[2020-05-12] MEDS: NACL 0.9% 1,000 ML IV SCH (20:13)
[2020-05-12 20:19] LABS: APPEARANCE,URINE CLOUDY (CLEAR); BILIRUBIN,URINE 1+ (NEGATIVE); BLOOD, URINE 3+ (NEGATIVE); COLOR,URINE BROWN (YELLOW); LEUKOCYTE ESTERASE ,URINE TRACE (NEGATIVE); NITRITE, URINE POSITIVE (NEGATIVE); UGLUCOSE NEGATIVE (NEGATIVE)
[2020-05-12 20:22] LABS: BARBITURATE, URINE NEGATIVE ng/ml (NEG <=200); BENZODIAZEPINE, URINE NEGATIVE ng/mL (NEG <=200); CANNABINOID, URINE NEGATIVE ng/mL (NEG <=50); COCAINE, URINE NEGATIVE ng/mL (NEG <=300); OPIATE, URINE NEGATIVE ng/mL (NEG <=2000); PHENCYCLIDINE SCREEN,URINE NEGATIVE ng/mL (NEG <=25)
--- NOTE | 2020-05-12 20:30 | NUR ---
PT IS RESTING WITH HOB IN LOW FOWLERS POSITION. BED IS LOCKED AND IN LOWEST POSITION. PT CONNECTED TO THE ART HISTORIAN. NO ACUTE DISTRESS NOTED. NO NEW ORDERS AT THIS TIME. BED IS LOCKED AND IN LOWEST POSITION. SIDE RAILSX1. CALL LIGHT WITHIN REACH.
[2020-05-12 20:34] LABS: RBC,URINE TOO NUMEROUS TO COUN /HPF (0-5)
[2020-05-12 20:41] LABS: CHOL/HDL RATIO 2.3 (1-4.5); FREE T4 (FREE THYROXINE) 0.84 ng/dL (0.76-1.46); MAGNESIUM 1.9 mg/dL (1.8-2.4); PHOSPHORUS 3.5 mg/dL (2.5-4.9); THYROID STIMULATING HORMONE 1.27 uIU/mL (0.34-3.74)
[2020-05-12 20:47] LABS: PROTHROMBIN TIME 9.8 secs (10.8-13.4)
[2020-05-12 20:56] LABS: BASOPHILS # (AUTO) 0.1 K/uL (0.00-0.22); BASOPHILS % (AUTO) 1.3 % (0.0-2.0); EOSINOPHILS # (AUTO) 0.1 K/uL (0-0.4); EOSINOPHILS % (AUTO) 2.3 % (0.0-4.0); HEMATOCRIT 23.8 % (36-48); HEMOGLOBIN 7.2 g/dL (12.0-16.0); LYMPHOCYTES % (AUTO) 30.2 % (20.5-51.1); MEAN CORPUSCULAR HEMOGLOBIN 21 pg (27-31); MEAN CORPUSCULAR HGB CONC 30 g/dL (33-37); MEAN CORPUSCULAR VOLUME 68.7 fL (80-94); MONOCYTES # (AUTO) 0.6 K/uL (0.8-1.0); MONOCYTES % (AUTO) 8.9 % (1.7-9.3); NEUTROPHILS # (AUTO) 3.8 K/uL (1.8-7.7); NEUTROPHILS % (AUTO) 57.3 % (42.2-75.2); PLATELET COUNT (AUTO) 301 K/uL (140-450); RED BLOOD CELL COUNT(AUTO) 3.47 MIL/uL (4.20-5.40); RED CELL DISTRIBUTION WIDTH 21.9 % (11.6-13.7); WHITE BLOOD COUNT (AUTO) 6.6 K/uL (4.8-10.8)
--- NOTE | 2020-05-12 21:00 | NUR ---
REPORT RECEIVED OVER THE PHONE FROM [facility] NURSE.
--- NOTE | 2020-05-12 21:21 | NUR ---
CALLED AND GAVE REPORT TO SAMIA BILLY FOR TRANSFER OF CARE TO TELEMETRY
--- NOTE | 2020-05-12 21:21 | NUR ---
Alexander hermosillo in [facility] - 05/12/20 at 2156 by NADINE CALLED AND GAVE REPORT TO SAMIA BILLY FOR TRANSFER OF CARE TO TELEMETRY
--- NOTE | 2020-05-12 21:30 | NUR ---
PT IS RESTING WITH HOB IN LOW FOWLERS POSITION. BED IS LOCKED AND IN LOWEST POSITION. PT CONNECTED TO THE PUBLIC AREA ATTENDANT. NO ACUTE DISTRESS NOTED. NO NEW ORDERS AT THIS TIME. BED IS LOCKED AND IN LOWEST POSITION. SIDE RAILSX1. CALL LIGHT WITHIN REACH.
--- NOTE | 2020-05-12 21:53 | NUR ---
Patient will be admitted to care of DR. EUGENE Admited to TELE. Will go to room 113 A. Belongings list completed. Report to SAMIA BILLY .
--- NOTE | 2020-05-12 22:00 | NUR ---
PT TRANSPORTED TO ROOM VIA W/C. SHE IS AOX4 SKIN INTACT AND HAS LAC 20 G RUNNING N/S AT 100MLS/HR. V/S STABLE, PT DENIES PAIN.
[2020-05-12 22:15] VITALS: BP 120/58
--- NOTE | 2020-05-12 22:15 | NUR ---
ELISA HUNG AND RUNNING AT 100MLS/HR.
[2020-05-12] MEDS ORDERED: cefTRIAXone 1,000 MG VIAL ONE (22:24)
[2020-05-13 04:00] VITALS: BP 118/57
[2020-05-13] MEDS: NACL 0.9% 1,000 ML IV SCH ×2 (06:13→15:55)
[2020-05-13] MEDS: MORPHINE SULFATE 2 MG/ML SYR IVP PRN ×2 (06:52→18:44)
--- NOTE | 2020-05-13 06:52 | NUR ---
PT UP TO TOILET, STILL ACTIVELY BLEEDING FORM VAGINA. PT ASSISTED WITH NEW GOWN, HYGIENE AN ASSISTED BACK TO BED. PT C/O OF 11/17 PAIN, GIVN MORPHINE IVP AND NWE BAG OF N/S HUNG .
[2020-05-13 07:07] LABS: BASOPHILS # (AUTO) 0.1 K/uL (0.00-0.22); EOSINOPHILS # (AUTO) 0.1 K/uL (0-0.4); EOSINOPHILS % (AUTO) 2.6 % (0.0-4.0); HEMATOCRIT 23.2 % (36-48); LYMPHOCYTES # (AUTO) 1.5 K/uL (2.5-16.5); LYMPHOCYTES % (AUTO) 27.7 % (20.5-51.1); MEAN CORPUSCULAR HEMOGLOBIN 20 pg (27-31); MEAN CORPUSCULAR HGB CONC 30 g/dL (33-37); MEAN CORPUSCULAR VOLUME 68.7 fL (80-94); MONOCYTES # (AUTO) 0.6 K/uL (0.8-1.0); MONOCYTES % (AUTO) 11.9 % (1.7-9.3); NEUTROPHILS # (AUTO) 3.1 K/uL (1.8-7.7); NEUTROPHILS % (AUTO) 56.8 % (42.2-75.2); PLATELET COUNT (AUTO) 297 K/uL (140-450); RED BLOOD CELL COUNT(AUTO) 3.37 MIL/uL (4.20-5.40); RED CELL DISTRIBUTION WIDTH 22.2 % (11.6-13.7); WHITE BLOOD COUNT (AUTO) 5.5 K/uL (4.8-10.8)
[2020-05-13 07:13] LABS: ANION GAP 11.5 (8-16); CARBON DIOXIDE 23.6 mmol/L (21-32); CREATININE 0.6 mg/dL (0.6-1.3); POTASSIUM 4.1 mmol/L (3.5-5.1)
[2020-05-13 07:19] LABS: HEMOGLOBIN 6.9 g/dL (12.0-16.0)
--- NOTE | 2020-05-13 07:30 | NUR ---
RECEIVED BEDSIDE ENDORSEMENT FROM NIGHTSNYFT NURSE FOR CONTINUITY OF CARE.
[2020-05-13 07:38] LABS: MAGNESIUM 1.8 mg/dL (1.8-2.4)
[2020-05-13 08:00] VITALS: BP 116/48
--- NOTE | 2020-05-13 09:39 | NUR ---
PATIENT HAS BEEN SCREENED AND CATEGORIZED LOW NUTRITION RISK. PATIENT WILL BE SEEN WITHIN 7 DAYS OF ADMISSION. 05/19/[address]
--- NOTE | 2020-05-13 10:39 | NUR ---
HOURLY ROUNDING PROVIDED. PATIENT PROVIDED W/ UNDERWEAR AND PADS. PATIENT IS AMBULATORY, STEADY GAIT. DENIES PAIN, SHOWS NO SIGNS OF DISTRESS. SAFETY MEASURES IN PLACE. WILL CONT TO MONITOR.
--- NOTE | 2020-05-13 11:57 | NUR ---
ADMINISTERED PRN MED FOR 4/10 PAIN. PATIENT TOLERATED WELL. CODE STATUS DISCUSSION, WILL HAVE DOCTOR EXPLAIN FOR STATUS DECISION. SAFETY MEASURES IN PLACE. WILL CONTINUE TO MONITOR.
[2020-05-13 12:00] VITALS: BP 124/58
--- NOTE | 2020-05-13 13:54 | NUR ---
HOURLY CHECK PERFORMED. PATIENT RESTING IN BED. AWOKE UPON ARRIVAL. DENIES PAIN. ABLE TO MAKE NEEDS KNOWN. SAFETY MEASURES IN PLACE. WILL CONTINUE TO MONITOR.
--- NOTE | 2020-05-13 15:03 | NUR ---
SOCIAL WORK NOTE: SW WAS UNABLE TO MEET PATIENT AT BEDSIDE. ANDERSON CONTACTED EMERGENCY CONTACT KARLENE MASON [phone] AND LEFT VM TO COMPLETE ASSESSMENT. ANDERSON WILL FOLLOW UP.
[2020-05-13 16:00] VITALS: BP 115/60
--- NOTE | 2020-05-13 17:17 | NUR ---
ADMINISTERED PRN MED FOR 7/10 ABD PAIN. PATIENT TOLERATED WELL. MEDICATION EDUCATION PROVIDED. PATIENT TOLERATED WELL. SAFETY MEASURES IN PLACE. WILL CONTINUE TO MONITOR.
--- NOTE | 2020-05-13 18:10 | NUR ---
ADMINISTERED PRBCs PER MD ORDER. PATIENT BEGINNING TRANSFUSION VS: BP122/55; RR 20; PULSE 61; TEMP 96.8. PATIENT REPORTS ABD PAIN 8/10. PRN PAIN MED GIVEN PRIOR TO TRANSFUSION AT 1706.
--- NOTE | 2020-05-13 18:51 | NUR ---
ADMINISTERED PRN MED FOR 10/10 PAIN. PATIENT TOLERATED WELL. ENCOURAGED PATIENT TO EAT DINNER TRAY. SAFETY MEASURES IN PLACE. WILL CONT TO MONITOR.
--- NOTE | 2020-05-13 19:28 | NUR ---
ENDORSED PATIENT TO NIGHTSHIFT NURSE FOR CONTINUITY OF CARE.
[2020-05-13 20:00] VITALS: BP 122/67
--- NOTE | 2020-05-13 23:27 | NUR ---
Received patient from am shift with 0 s/s of distress noted during initial walk through. AM nurse endorsed that the patient was currently in the process of receiving 1 unit of PRBCs the infusion was started at 1815 with a completion time by 2215. Patient was tolerating the procedure well and nurse continue to assess the patient for comfort and changes throughout the infusion to monitor for any adverse effects. Infusion finished as scheduled and patient tolerated well. NS @100 ml was started followed by scheduled ceftriaxone. Patient is currently stable with 0 s/s of distress, able to make needs known and has call light within reach will continue to monitor throughout the shift for any changes.
--- NOTE | 2020-05-14 01:18 | NUR ---
Patient is currently sleeping 0 s/s of distress breathing is even and unlabored. Will continue to monitor throughout the shift.
[2020-05-14] MEDS: NACL 0.9% 1,000 ML IV SCH ×3 (01:46→13:14)
[2020-05-14 04:00] VITALS: BP 115/53
--- NOTE | 2020-05-14 06:26 | NUR ---
Patient is currently resting with 0 s/s of distress and equal and even chest rise. All scheduled medications and interventions were completed including a morning lab draw. Call light is within reach and patient is able to verbalize needs will endorse further care to the am shift nurse for continuity of care.
[2020-05-14 06:53] LABS: BASOPHILS # (AUTO) 0.1 K/uL (0.00-0.22); BASOPHILS % (AUTO) 0.9 % (0.0-2.0); EOSINOPHILS # (AUTO) 0.2 K/uL (0-0.4); EOSINOPHILS % (AUTO) 3.4 % (0.0-4.0); HEMATOCRIT 26.9 % (36-48); LYMPHOCYTES # (AUTO) 1.3 K/uL (2.5-16.5); LYMPHOCYTES % (AUTO) 23.6 % (20.5-51.1); MEAN CORPUSCULAR HEMOGLOBIN 21 pg (27-31); MEAN CORPUSCULAR HGB CONC 30 g/dL (33-37); MEAN CORPUSCULAR VOLUME 71.9 fL (80-94); MONOCYTES # (AUTO) 0.5 K/uL (0.8-1.0); MONOCYTES % (AUTO) 9.1 % (1.7-9.3); NEUTROPHILS # (AUTO) 3.6 K/uL (1.8-7.7); PLATELET COUNT (AUTO) 301 K/uL (140-450); RED BLOOD CELL COUNT(AUTO) 3.75 MIL/uL (4.20-5.40); RED CELL DISTRIBUTION WIDTH 24.2 % (11.6-13.7); WHITE BLOOD COUNT (AUTO) 5.7 K/uL (4.8-10.8)
[2020-05-14 07:43] LABS: ANION GAP 10.6 (8-16); CARBON DIOXIDE 24.4 mmol/L (21-32); CREATININE 0.6 mg/dL (0.6-1.3)
[2020-05-14 07:45] LABS: MAGNESIUM 1.9 mg/dL (1.8-2.4)
[2020-05-14 08:08] LABS: FOLIC ACID 14.3 ng/mL (>3.0)
[2020-05-14] MEDS: MORPHINE SULFATE 2 MG/ML SYR IVP PRN (12:04)
[2020-05-14 18:52] VITALS: BP 118/50
--- NOTE | 2020-05-14 23:29 | NUR ---
Received patient with no s/s of distress and equal and even chest rise. Patient is A&Ox4 able to make needs known as has call light within reach. Patient is no longer on tele monitor and is receiving medical surg care. Patient was cooperative during evening assessment and received all evening scheduled medications. Will continue to monitor throughout the shift.
[2020-05-15] VITALS: BP 123/60
[2020-05-15 04:00] VITALS: BP 116/56
[2020-05-15] MEDS: NACL 0.9% 1,000 ML IV SCH (06:53)
--- NOTE | 2020-05-15 07:07 | NUR ---
Patient is currently resting with 0 s/s of distress and call light within reach. Patient is able to verbalize needs. Patient states that vaginal hemorrhage decreased and that she only used 1 menstrual pad last night. All needs have been met and will endorse further care to am shift for continuity of care.
[2020-05-15 07:12] LABS: BASOPHILS # (AUTO) 0.1 K/uL (0.00-0.22); BASOPHILS % (AUTO) 0.8 % (0.0-2.0); EOSINOPHILS # (AUTO) 0.2 K/uL (0-0.4); EOSINOPHILS % (AUTO) 2.6 % (0.0-4.0); HEMATOCRIT 27.6 % (36-48); HEMOGLOBIN 8.4 g/dL (12.0-16.0); LYMPHOCYTES # (AUTO) 1.4 K/uL (2.5-16.5); LYMPHOCYTES % (AUTO) 20.5 % (20.5-51.1); MEAN CORPUSCULAR HEMOGLOBIN 22 pg (27-31); MEAN CORPUSCULAR HGB CONC 30 g/dL (33-37); MEAN CORPUSCULAR VOLUME 71.6 fL (80-94); MONOCYTES # (AUTO) 0.8 K/uL (0.8-1.0); MONOCYTES % (AUTO) 10.6 % (1.7-9.3); NEUTROPHILS # (AUTO) 4.6 K/uL (1.8-7.7); NEUTROPHILS % (AUTO) 65.5 % (42.2-75.2); PLATELET COUNT (AUTO) 319 K/uL (140-450); RED BLOOD CELL COUNT(AUTO) 3.86 MIL/uL (4.20-5.40); RED CELL DISTRIBUTION WIDTH 24.9 % (11.6-13.7); WHITE BLOOD COUNT (AUTO) 7.1 K/uL (4.8-10.8)
--- NOTE | 2020-05-15 07:12 | NUR ---
RECEIVED REPORT FROM NIGHTSHIFT NURSE. PT RESTING IN BED. ABLE TO MAKE NEEDS KNOWN. RESPIRATIONS EVEN AND UNLABORED WITH NO SOB OR RESPIRATORY DISTRESS. SKIN WARM AND DRY TO TOUCH. IV SITE IN LAC 20G IS CLEAN, DRY, AND INTACT. SAFETY MEASURES IN PLACE. WILL CONTINUE TO MONITOR
[2020-05-15 07:34] LABS: ANION GAP 9.4 (8-16); CARBON DIOXIDE 26.6 mmol/L (21-32); CREATININE 0.7 mg/dL (0.6-1.3)
[2020-05-15 07:38] LABS: MAGNESIUM 1.8 mg/dL (1.8-2.4); PHOSPHORUS 2.8 mg/dL (2.5-4.9)
[2020-05-15 08:00] VITALS: BP 148/72
--- NOTE | 2020-05-15 13:30 | NUR ---
HOURLY ROUNDING. PT RESTING IN BED. ABLE TO MAKE NEEDS KNOWN. RESPIRATIONS EVEN AND UNLABORED WITH NO SOB OR RESPIRATORY DISTRESS. SKIN WARM AND DRY TO TOUCH. SAFETY MEASURES IN PLACE. WILL CONTINUE TO MONITOR
--- NOTE | 2020-05-15 15:10 | NUR ---
PT SLEEPING IN BED. RESPONSIVE TO VERBAL AND TACTILE STIMULI. NO SIGNS OF DISTRESS. WILL CONTINUE TO MONITOR
[2020-05-15] MEDS ORDERED: ASCO500T95 PO (15:33)
[2020-05-15] MEDS ORDERED: FERR324T11 PO (15:33)
--- NOTE | 2020-05-15 15:44 | NUR ---
DC [age] YRS OLD FEMALE PATIENT WAS ADMITTED FROM HOME WITH A DX OF SYMPTOMATIC ANEMIA, VAGINAL HEMORRHAGE. H/H 6.9/23.2 TRANSFUSED 1 UNIT PRBC AND H/H 8.4/27.[address] LALITHA BURLESON FOR POSSIBLE ADENOMYOSIS. STABLE FOR DC AND FOLLOW UP WITH OBGYN. CM TO FOLLOW
[2020-05-15] MEDS ORDERED: MEDR10TA PO (15:49)
[2020-05-15 16:00] VITALS: BP 141/62
[2020-05-15 16:01] VITALS: BP 148/72
--- NOTE | 2020-05-15 16:15 | NUR ---
WENT OVER DISCHARGE INSTRUCTIONS WITH PATIENT. PT SIGNED APPROPRIATE DOCUMENTS. EDUCATED PT TO VISIT ED FOR ANY SIGNS OF DISTRESS. PT VERBALIZED UNDERSTANDING. PT UP TO DATE ON VACCINES. REMOVED INTACT IV CANNULA, ID BRACELET, AND BLOOD BANK NUMBER. PT CHANGED INTO HER OWN CLOTHES AND GATHERED ALL OF HER BELONGINGS. PT STABLE TO GO HOME
== END 2020-05-15 16:15 | disposition home or self-care (01) | DRG 532 ==
LOC: MED 16:11 → MTU 18:31
PROVIDERS: ADMIT Family Medicine; ATTEND Family Medicine
PROC: 30233N1 Transfusion of Nonautologous Red Blood Cells into Peripheral Vein, Percutaneous Approach (ICD-10-PCS; principal; 2020-05-13)
DX: D25.9 Leiomyoma of uterus, unspecified (principal); N93.8 Other specified abnormal uterine and vaginal bleeding; G43.909 Migraine, unspecified, not intractable, without status migrainosus; D64.9 Anemia, unspecified; Z56.0 Unemployment, unspecified; Z20.822 Contact with and (suspected) exposure to COVID-19
CPT/HCPCS: 36415; 76830; 80048; 80053; 80305; 81001; 82150; 82607; 82728; 82746; 82977; 83036; 83540; 83690; 83735; 83880; 84100; 84439; 84443; 84484; 85025; 85045; 85610; 85730; 86886; 86900; 86901; 86920; 87081; 87086; 99285; J0696; J2270; J7030; J7060; P9016; U0003

== ENCOUNTER 2021-01-14 22:54 | Emergency (ER) | payer MEDICAID, OTHER, SELFPAY ==
[~2021-01-14] VITALS: Ht 170.2 cm; Wt 81.6 kg
[~2021-01-14 22:54] MED LIST changes: +ASCO500T95 PO; -DOCU-299 PO; +FERR324T11 PO; -HYDR-5080 PO; +MEDR10TA PO; -OMEP20EC4 PO
[2021-01-14 23:04] VITALS: BP 160/90
--- NOTE | 2021-01-14 23:04 | NUR ---
TO BED AMBULATORY
--- NOTE | 2021-01-14 23:25 | NUR ---
AMBULATED TO BED 8 WITH C/O VAG BLEEDING FOR 2 WEEKS. PMH: FIBROIDS
--- NOTE | 2021-01-14 23:50 | NUR ---
Dr. Grady examining patient.
[2021-01-15 00:51] LABS: BASOPHILS % (AUTO) 0.7 % (0.0-2.0); EOSINOPHILS # (AUTO) 0.2 K/uL (0-0.4); EOSINOPHILS % (AUTO) 2.5 % (0.0-4.0); HEMATOCRIT 31.2 % (36-48); HEMOGLOBIN 9.7 g/dL (12.0-16.0); LYMPHOCYTES # (AUTO) 1.8 K/uL (2.5-16.5); LYMPHOCYTES % (AUTO) 28.6 % (20.5-51.1); MEAN CORPUSCULAR HEMOGLOBIN 25 pg (27-31); MEAN CORPUSCULAR HGB CONC 31 g/dL (33-37); MEAN CORPUSCULAR VOLUME 78.3 fL (80-94); MONOCYTES # (AUTO) 0.6 K/uL (0.8-1.0); NEUTROPHILS # (AUTO) 3.6 K/uL (1.8-7.7); NEUTROPHILS % (AUTO) 59.2 % (42.2-75.2); PLATELET COUNT (AUTO) 315 K/uL (140-450); RED BLOOD CELL COUNT(AUTO) 3.98 MIL/uL (4.20-5.40); RED CELL DISTRIBUTION WIDTH 18.4 % (11.6-13.7); WHITE BLOOD COUNT (AUTO) 6.2 K/uL (4.8-10.8)
[2021-01-15 01:00] VITALS: BP 148/86
[2021-01-15 01:03] LABS: PROTHROMBIN TIME 10.3 secs (10.8-13.4)
[2021-01-15 01:16] LABS: ALBUMIN 3.5 g/dL (3.4-5.0); ANION GAP 10.3 (8-16); CARBON DIOXIDE 27.5 mmol/L (21-32); CREATININE 0.9 mg/dL (0.6-1.3); POTASSIUM 3.8 mmol/L (3.5-5.1); TOTAL BILIRUBIN 0.1 mg/dL (0.0-1.0)
[2021-01-15] MEDS ORDERED: FERR-212 PO (01:53)
--- NOTE | 2021-01-15 01:55 | NUR ---
Patient discharged with v/s stable. Written and verbal after care instructions given and explained. Patient alert, oriented and verbalized understanding of instructions. Ambulatory with steady gait. All questions addressed prior to discharge. ID band removed. Patient advised to follow up with PMD. Rx of IRON given. Patient educated on indication of medication including possible reaction and side effects. Opportunity to ask questions provided and answered.
== END 2021-01-15 01:55 | disposition home or self-care (01) ==
LOC: MED 22:54
DX: N93.9 Abnormal uterine and vaginal bleeding, unspecified (principal); J45.909 Unspecified asthma, uncomplicated
CPT/HCPCS: 36415; 80053; 81025; 85025; 85610; 85730; 86886; 86900; 86901; 99283

== ENCOUNTER 2021-01-27 14:19 | Emergency (ER) | payer OTHER ==
[~2021-01-27 14:19] MED LIST changes: +FERR-212 PO
[2021-01-28 03:04] LABS: HEMATOCRIT 29.5 % (36-48); HEMOGLOBIN 9.2 g/dL (12.0-16.0); MEAN CORPUSCULAR HEMOGLOBIN 25 pg (27-31); MEAN CORPUSCULAR VOLUME 78.8 fL (80-94); RED BLOOD CELL COUNT(AUTO) 3.74 MIL/uL (4.20-5.40); WHITE BLOOD COUNT (AUTO) 8.2 K/uL (4.8-10.8)
[2021-01-28 03:05] LABS: BASOPHILS % (AUTO) 0.4 % (0.0-2.0); EOSINOPHILS % (AUTO) 0.8 % (0.0-4.0); LYMPHOCYTES % (AUTO) 22.6 % (20.5-51.1); MEAN CORPUSCULAR HGB CONC 31 g/dL (33-37); MONOCYTES % (AUTO) 8.7 % (1.7-9.3); NEUTROPHILS % (AUTO) 67.5 % (42.2-75.2); PLATELET COUNT (AUTO) 324 K/uL (140-450)
== END 2021-01-27 17:09 | disposition home or self-care (01) ==
LOC: MED 14:19
DX: D25.9 Leiomyoma of uterus, unspecified (principal); N93.9 Abnormal uterine and vaginal bleeding, unspecified
CPT/HCPCS: 36415; 80048; 85025; 85610; 86900; 86901; 99283

== ENCOUNTER 2021-06-24 17:33 | Observation (INO) | payer OTHER, SELFPAY ==
[~2021-06-24] VITALS: Ht 170.2 cm; Wt 81.6 kg
[2021-06-24 17:37] VITALS: BP 161/97
[2021-06-24 18:46] LABS: BASOPHILS % (AUTO) 0.8 % (0.0-2.0); EOSINOPHILS # (AUTO) 0.1 K/uL (0-0.4); EOSINOPHILS % (AUTO) 2.1 % (0.0-4.0); HEMATOCRIT 21.8 % (36-48); LYMPHOCYTES # (AUTO) 2.1 K/uL (2.5-16.5); LYMPHOCYTES % (AUTO) 38.7 % (20.5-51.1); MEAN CORPUSCULAR HEMOGLOBIN 22 pg (27-31); MEAN CORPUSCULAR HGB CONC 31 g/dL (33-37); MEAN CORPUSCULAR VOLUME 70.8 fL (80-94); MONOCYTES # (AUTO) 0.5 K/uL (0.8-1.0); MONOCYTES % (AUTO) 9.3 % (1.7-9.3); NEUTROPHILS # (AUTO) 2.6 K/uL (1.8-7.7); NEUTROPHILS % (AUTO) 49.1 % (42.2-75.2); PLATELET COUNT (AUTO) 326 K/uL (140-450); RED BLOOD CELL COUNT(AUTO) 3.08 MIL/uL (4.20-5.40); RED CELL DISTRIBUTION WIDTH 22.1 % (11.6-13.7); WHITE BLOOD COUNT (AUTO) 5.3 K/uL (4.8-10.8)
[2021-06-24 18:55] LABS: ANION GAP 10.9 (8-16); CARBON DIOXIDE 28.9 mmol/L (21-32); CREATININE 0.9 mg/dL (0.6-1.3); POTASSIUM 3.8 mmol/L (3.5-5.1)
[2021-06-24 19:01] LABS: HEMOGLOBIN 6.7 g/dL (12.0-16.0)
--- NOTE | 2021-06-24 19:30 | NUR ---
PT W/C ASSISTED TO BD #11
--- NOTE | 2021-06-24 19:41 | NUR ---
41YR OLD FEMALE BIB SELF C/O VAG BLEED [id number]. NO ABD PAIN NO N/V/D. NO PREG. PT STATES TODAY SHE FELT LIGHT HEADED AND DIZZY WHILE IN THE SUN. NKDA MED HX HTN
--- NOTE | 2021-06-24 19:56 | NUR ---
VANNESA COLLECTED AND TAKEN TO LAB.
--- NOTE | 2021-06-24 19:56 | NUR ---
PT PLACED IN GOWN, PT SKIN IS INTACT. PT STATES SHE IS UNABLE TO RECALL BP MEDICATION.
--- NOTE | 2021-06-24 20:00 | NUR ---
20G IV CATH LEFT AC .
--- NOTE | 2021-06-24 20:13 | NUR ---
GARLAND FROM LAB STATED CULTURES HAVE NOT BEEN DRAWN. WENCESLAO PHLEB AT BED SIDE TO COLLECT CULTURES. GARLAND STATED PT NEEDS URINE COLLECTION BECAUSE THEY SPILLED IT. WILL RECOLLECT URINE.
[2021-06-24] MEDS ORDERED: cefTRIAXone 1,000 MG VIAL ONE (20:35)
[2021-06-24 21:09] LABS: APPEARANCE,URINE CLEAR (CLEAR); BILIRUBIN,URINE NEGATIVE (NEGATIVE); BLOOD, URINE 3+ (NEGATIVE); COLOR,URINE YELLOW (YELLOW); LEUKOCYTE ESTERASE ,URINE NEGATIVE (NEGATIVE); NITRITE, URINE NEGATIVE (NEGATIVE); UGLUCOSE NEGATIVE (NEGATIVE)
--- NOTE | 2021-06-24 21:15 | NUR ---
IV TO LAC DISCONT D/T INCREASED PAIN. IV TO RAC 20G ESTABLISHED.
--- NOTE | 2021-06-24 21:20 | NUR ---
BLOOD TRANSFUSION INITIATED.
[2021-06-24 21:31] LABS: RBC,URINE NONE SEEN /HPF (0-5); WBC,URINE 0-5 /HPF (0-5)
--- NOTE | 2021-06-24 21:35 | NUR ---
PT IS TOLERATING BLOOD TRANSFUSION WELL. DENIES ITCHING, SOB, AND CHEST PAIN. PT STATES SHE FEELS HER H/A IS SUBSIDING. EXTRA PILLOW PROVIDED FOR PT PER REQUEST. VSS. PT IS IN STABLE CONDITION. ALL NEEDS MET AT THIS TIME.
[2021-06-24 23:03] VITALS: BP 124/81
--- NOTE | 2021-06-24 23:20 | NUR ---
PT IS LAYING BACK IN BED USING PHONE. PT IN STABLE CONDITION. VSS. ALL NEEDS MET AT THIS TIME. BED LOCKED IN LOWEST POSITION, SIDE RAILS X2 FOR SAFETY.
--- NOTE | 2021-06-25 00:03 | NUR ---
PT STATES SHE WOULD LIKE TO GO HOME. PT STATES SHE THOUGHT SHE COULD GET A BLOOD TRANSFUSION THEN GO HOME SHE HAS IN THE PAST. PT STATES SHE HAS A FOLLOW UP APPOINTMENT ALREADY SET. DR. QURESHI NOTIFIED, STATED PT WOULD HAVE TO AMA.
--- NOTE | 2021-06-25 00:10 | NUR ---
Patient does not wish to proceed with medical care recommended by . Patient given information related to possible complications, up to and including , which could occur as a result of leaving hospital at this time. Patient verbalizes understanding of risks involved leaving against medical advice. Patient has signed AMA form.
[2021-06-25] MEDS ORDERED: ZOLPIDEM 5 MG TAB PO PRN (07:35)
[2021-06-25] MEDS ORDERED: NACL 0.9% 1,000 ML IV SCH (07:35)
[2021-06-25] MEDS ORDERED: HYDROcodone/APAP 5/325 MG 1 TAB TAB PO PRN (07:35)
[2021-06-25] MEDS ORDERED: LORazepam 2 MG/ML VIAL IM/IVP PRN (07:35)
[2021-06-25] MEDS ORDERED: POTASSIUM CHLORIDE 10 MEQ TABER PO PRN (07:35)
[2021-06-25] MEDS ORDERED: ONDANSETRON 4 MG/2 ML VIAL IVP PRN (07:35)
[2021-06-25] MEDS ORDERED: DOCUSATE SODIUM 100 MG GELCAP PO PRN (07:35)
[2021-06-25] MEDS ORDERED: MAG SULF 2000 MG/WATER PREMIX 50 ML IV PRN (07:35)
[2021-06-25] MEDS ORDERED: SODIUM PHOS / POTASSIUM PHOS 1 PKT PDR PO PRN (07:35)
[2021-06-25] MEDS ORDERED: MORPHINE SULFATE 2 MG/ML SYR IVP PRN (07:35)
[2021-06-25] MEDS ORDERED: ACETAMINOPHEN 325 MG TAB PO PRN (07:35)
--- NOTE | 2021-06-25 15:49 | NUR ---
PATIENT HAS BEEN SCREENED AND CATEGORIZED LOW NUTRITION RISK. PATIENT WILL BE SEEN WITHIN 7 DAYS OF ADMISSION. 07/01/[address]
== END 2021-06-25 00:10 | disposition left against medical advice (07) ==
LOC: MED 17:33 → MTU 22:26
PROVIDERS: ADMIT Student in an Organized Health Care Education/Training Program; ATTEND Student in an Organized Health Care Education/Training Program
DX: D50.0 Iron deficiency anemia secondary to blood loss (chronic) (principal); Z20.822 Contact with and (suspected) exposure to COVID-19; N93.9 Abnormal uterine and vaginal bleeding, unspecified; J45.909 Unspecified asthma, uncomplicated; I10 Essential (primary) hypertension; F17.200 Nicotine dependence, unspecified, uncomplicated; Z53.21 Procedure and treatment not carried out due to patient leaving prior to being seen by health care provider; Z79.899 Other long term (current) drug therapy
CPT/HCPCS: 36415; 36430; 71045; 80048; 81001; 85025; 86886; 86900; 86901; 86920; 87040; 87086; 87426; 96365; 99284; G0378; J0696; P9016

== ENCOUNTER 2022-04-13 12:56 | Emergency (ER) | payer SELFPAY ==
[~2022-04-13] VITALS: Ht 170.2 cm; Wt 79.4 kg
[2022-04-13 13:06] VITALS: BP 148/97
--- NOTE | 2022-04-13 13:06 | NUR ---
PT AMBULATED TO LOBBY
--- NOTE | 2022-04-13 13:20 | NUR ---
41/F WALKED IN C/O LEFT SIDE OF THE FACE INTERMITTENT NUMBNESS ONSET 2 DAYS. PT REPORTS NUMBNESS COMES AND GOES IN 10-15 SEC DURATION. NO FACIAL DROOP OR SPEECH SLUR NOTED. AAO4, AMBULATORY, [facility] 15. DENIES ANY PAIN AT THIS TIME PMH: DENIES
--- NOTE | 2022-04-13 14:30 | NUR ---
LAB ATTEMPTED TO DRAW, NO ANSWER IN LOBBY/OUTSIDE
--- NOTE | 2022-04-13 15:49 | NUR ---
ATTEMPTED TO BRING PT BACK, NOT FOUND IN LOBBY/OUTSIDE.
--- NOTE | 2022-04-13 16:30 | NUR ---
LAST ATTEMPT, NOT FOUND .
--- NOTE | 2022-04-13 16:30 | NUR ---
PATIENT ELOPED FROM FACILITY. DISCHARGE INSTRUCTIONS NOT GIVEN TO PATIENT. KUSHAL SHAW NOTIFIED.
== END 2022-04-13 16:30 | disposition left against medical advice (07) ==
LOC: MED 12:56
DX: R20.2 Paresthesia of skin (principal); J45.909 Unspecified asthma, uncomplicated; I10 Essential (primary) hypertension; Z79.899 Other long term (current) drug therapy
CPT/HCPCS: 99281

== ENCOUNTER 2022-04-21 15:12 | Emergency (ER) | payer SELFPAY ==
[~2022-04-21] VITALS: Ht 170.2 cm; Wt 84.8 kg
[2022-04-21 15:28] VITALS: BP 175/94
[2022-04-21 16:42] LABS: BASOPHILS # (AUTO) 0.1 K/uL (0.00-0.22); BASOPHILS % (AUTO) 1.3 % (0.0-2.0); EOSINOPHILS # (AUTO) 0.2 K/uL (0-0.4); EOSINOPHILS % (AUTO) 2.7 % (0.0-4.0); HEMATOCRIT 32.1 % (36-48); LYMPHOCYTES # (AUTO) 1.7 K/uL (2.5-16.5); LYMPHOCYTES % (AUTO) 25.8 % (20.5-51.1); MEAN CORPUSCULAR HEMOGLOBIN 21 pg (27-31); MEAN CORPUSCULAR HGB CONC 31 g/dL (33-37); MEAN CORPUSCULAR VOLUME 68.5 fL (80-94); MONOCYTES # (AUTO) 0.7 K/uL (0.8-1.0); MONOCYTES % (AUTO) 11.1 % (1.7-9.3); NEUTROPHILS # (AUTO) 3.8 K/uL (1.8-7.7); NEUTROPHILS % (AUTO) 59.1 % (42.2-75.2); PLATELET COUNT (AUTO) 307 K/uL (140-450); RED BLOOD CELL COUNT(AUTO) 4.68 MIL/uL (4.20-5.40); RED CELL DISTRIBUTION WIDTH 19.8 % (11.6-13.7); WHITE BLOOD COUNT (AUTO) 6.5 K/uL (4.8-10.8)
[2022-04-21 16:53] LABS: ANION GAP 11.3 (8-16); CARBON DIOXIDE 28.8 mmol/L (21-32); CREATININE 0.8 mg/dL (0.6-1.3); POTASSIUM 4.1 mmol/L (3.5-5.1)
[2022-04-21 17:22] VITALS: BP 126/79
--- NOTE | 2022-04-21 17:23 | NUR ---
Patient discharged with v/s stable. Written and verbal after care instructions given and explained. Patient verbalized understanding. Ambulatory with steady gait. All questions addressed prior to discharge. Advised to follow up with PMD.
== END 2022-04-21 17:22 | disposition home or self-care (01) ==
LOC: MED 15:12
DX: J44.1 Chronic obstructive pulmonary disease with (acute) exacerbation (principal); I10 Essential (primary) hypertension; F17.210 Nicotine dependence, cigarettes, uncomplicated; Z90.49 Acquired absence of other specified parts of digestive tract; Z79.899 Other long term (current) drug therapy
CPT/HCPCS: 36415; 80048; 84703; 85025; 99283

== ENCOUNTER 2022-06-22 13:47 | Emergency (ER) | payer SELFPAY ==
--- NOTE | 2022-06-22 14:07 | NUR ---
PATIENT LEFT WITHOUT BEING SEEN BY DR. FERGUSON. NO FURTHER CARE PROVIDED FOR PATIENT.
== END 2022-06-22 14:07 | disposition left against medical advice (07) ==
LOC: MED 13:47
DX: N93.9 Abnormal uterine and vaginal bleeding, unspecified (principal); Z53.21 Procedure and treatment not carried out due to patient leaving prior to being seen by health care provider